=== PATIENT | male | born 1960 | race Hispanic/Latino ===

== ENCOUNTER 2020-09-29 09:06 | Day surgery (SDC) | payer MEDICARE ==
[2020-09-29] MEDS ORDERED: ceFAZolin/STERILE WATER 2 GM/20 ML SYRINGE IV NR (10:00)
[2020-09-29] MEDS ORDERED: ONDANSETRON 4 MG/2 ML INJ IV PRN (10:19)
[2020-09-29] MEDS ORDERED: HYDROmorphone 1 MG/1 ML INJ IV PRN (10:19)
--- NOTE | 2020-09-29 10:20 | Anesthesia Day of Surgery ---
Anesthesia Day of Surgery - Day of Surgery Patient Examined: Yes Patient H&P Reviewed: Yes Patient is NPO: Yes
--- NOTE | 2020-09-29 10:21 | Anesthesia Consultation ---
Anesthesia Consult and Med Hx Date of service: 09/29/20 - Airway Anesthetic Teeth Evaluation: Poor, Dentures, Edentulous (Upper) ROM Head & Neck: Adequate Mental/Hyoid Distance: Adequate Mallampati Class: Class II Intubation Access Assessment: Good - Pre-Operative Health Status ASA Pre-Surgery Classification: ASA2 Proposed Anesthetic Plan: General - Pulmonary Hx Smoking: Yes Hx Respiratory Symptoms: No (+2FS) - Cardiovascular System Hx Hypertension: No (ECHO/Stress test last week; ok per pt) - Central Nervous System Hx Psychiatric Problems: No - Gastrointestinal Hx Gastroesophageal Reflux Disease: No - Endocrine Hx Renal Disease: Yes (Decreased kidney function) - Other Systems Hx Cancer: Yes (Lymphoma- currently taking chemo)
[2020-09-29] MEDS ORDERED: LACTATED RINGERS 1,000 ML IV SCH (10:30)
[2020-09-29] MEDS ORDERED: propofoL 200 MG/20 ML VIAL IV ONE (11:15)
[2020-09-29] MEDS ORDERED: LIDOCAINE PF 100 MG/5 ML (CARDIAC SYRINGE) IV ONE (11:15)
[2020-09-29] MEDS ORDERED: HYDROmorphone 1 MG/1 ML INJ ONE (11:16)
[2020-09-29] MEDS ORDERED: WATER FOR IRRIG STERILE 2000 ML IR ONE (11:54)
[2020-09-29] MEDS ORDERED: WATER FOR IRRIG STERILE 1,500 ML BOTTLE IR ONE (11:55)
[2020-09-29] MEDS ORDERED: ONDANSETRON 4 MG/2 ML INJ ONE (12:30)
[2020-09-29] MEDS ORDERED: SODIUM CHLORIDE 0.9% IRRIG SOLN 3000 ML IR ONE (12:48)
[2020-09-29] MEDS: HYDROmorphone 1 MG/1 ML INJ IV PRN ×4 (12:50→13:25)
--- NOTE | 2020-09-29 12:51 | Post Operative Note ---
Date of procedure: 09/29/20 Pre-op diagnosis: retention Post-op diagnosis: same Findings: boocysto spt turp Procedure: cysto spt turp Anesthesia: GETA Surgeon: ANATOLIY FAY Estimated blood loss: minimal Pathology: list (prostate) Specimen disposition: to lab Condition: stable Disposition: PACU
--- NOTE | 2020-09-29 12:52 | Discharge Summary ---
Short Stay Discharge Plan Activity: other (no straining ) Weight Bearing Status: Partial Weight Bearing Diet: low fat, low cholesterol, low salt Wound: open to air, change dressing Special Instructions: other (inc fluids ) Durable Medical Equipment Needed Upon Discharge: other (whitaker and spt ) Follow up with: DR MARISEL [Other] - 7 Days ANATOLIY FAY MD [Staff Physician] - 10/04/20
[2020-09-29] MEDS ORDERED: PHENAZOPYRIDINE 200 MG TAB PO SCH (13:00)
[2020-09-29] MEDS ORDERED: PHENAZOPYRIDINE 100 MG TAB PO SCH (13:00)
--- NOTE | 2020-09-29 13:06 | Operative Report ---
PREOPERATIVE DIAGNOSES: Urinary retention, metastatic cancer, severe pain and discomfort with Crenshaw catheter with frequent clogging obstruction. POSTOPERATIVE DIAGNOSES: Urinary retention, metastatic cancer, severe pain and discomfort with Crenshaw catheter with frequent clogging obstruction. PROCEDURE: Insertion of suprapubic tube and transurethral resection of middle lobe. SURGEON: Dr. Cooper Nieves ANESTHESIA: General. FINDINGS: This is a gentleman who has bladder outlet obstruction, elevated pressures and every time, we placed the catheter, would obstruct, have been multiple Emergency Room. He now presents for treatment. DESCRIPTION OF PROCEDURE: The patient was brought to the operating room and placed on the operating table. Following induction of anesthesia, placed in lithotomy position, prepped and draped in usual sterile fashion. Cystourethroscopy showed a small middle lobe. He had 1+ trabeculation. A suprapubic tube was placed with the Lowsley, which was a 22 placed in the bladder. At this point, it was irrigated. A cystogram showed in excellent position. The bipolar was inserted and we incised the prostate and resected a small amount of the middle lobe. The patient tolerated the procedure well. No significant bleeding. A 22 coude was placed in the urethra. 22 suprapubic tube, he had a perfectly clear Nunn drip. No significant bleeding, brought to recovery in stable condition. JOB# [id number] KIRAN/CRISTO
--- NOTE | 2020-09-29 13:27 | Fluoroscopy Report ---
FL cystogram static-OR INDICATION / CLINICAL INFORMATION: URINARY RETENTION. COMPARISON: None available FINDINGS: 20 mL of contrast was administered in a retrograde fashion in the bladder by the urology department. Manager Planning imaging demonstrates calcified pelvic phleboliths. The bladder is only partially distended with trabeculated appearance of the bladder wall with multipl e bladder diverticula. No discrete filling defect or contrast extravasation is identified. No significant postvoid residual. Signer Name: Nasir Rodrigues MD Signed: 09/29/2020 1:22 PM Workstation Name: [id number]
[2020-09-29] MEDS ORDERED: PHENAZOPYRIDINE 100 MG TAB PO ONE (13:35)
[2020-09-29] MEDS ORDERED: PHENAZOPYRIDINE 200 MG TAB PO ONE (13:35)
--- NOTE | 2020-09-29 15:02 | Post Anesthesia Evaluation ---
- Post Anesthesia Evaluation Patient Participated: Yes Airway Patent: Yes Stable Respiratory Function: Yes Nausea/Vomiting: No Temp > 96.8F: Yes Pain Manageable: Yes Adequeate Hydration: Yes Anesthesia Complications: No Block Receding Appropriately: Not Applicable Patient on Ventilator: No
[2020-09-29 15:41] VITALS: BP 128/74
== END 2020-09-29 09:07 | disposition home or self-care (01) ==
LOC: OR 09:06
PROVIDERS: ATTEND Urology
DX: R33.8 Other retention of urine (principal); C79.82 Secondary malignant neoplasm of genital organs; F17.210 Nicotine dependence, cigarettes, uncomplicated; Z90.49 Acquired absence of other specified parts of digestive tract; Z79.899 Other long term (current) drug therapy; Z98.890 Other specified postprocedural states; Z86.73 Personal history of transient ischemic attack (TIA), and cerebral infarction without residual deficits
CPT/HCPCS: 51102; 52601; 74430; 88305; A4217; J0690; J1170; J2001; J2405; J2704; J7120; Q9967